=== PATIENT | female | born 1965 | race Caucasian/White ===

== ENCOUNTER → 2017-06-15 | Day surgery (SDC) | payer OTHER ==
[~2017-06-15] MED LIST: ACETAMINOPHEN/HYDROcodone 325 MG/5 MG TAB ONE; LACTATED RINGER'S 1000 ML INJ 1,000 ML ONE; MIDAZOLAM HCL 2 MG/2 ML VIAL ONE; ONDANSETRON HCL 4 MG/2 ML VIAL IV PUSH ONE; PROPOFOL 200 MG/20 ML AMP IV ONE; TRIAMCINOLONE ACETONIDE 40 MG/ML VIAL ONE; ceFAZolin INJ 1,000 MG VIAL ONE
--- NOTE | 2017-06-15 16:29 | TN ---
cc: Leander Navas MD DATE OF SURGERY: 06/15/2017 DATE OF OPERATION: 06/15/2017 PREOPERATIVE DIAGNOSIS: Left knee internal derangement. 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 PROCEDURE: Left knee arthroscopic surgery - subtotal lateral meniscectomy, chondroplasty, shaving articular surface of lateral compartment. SURGEON: Leander Navas MD SLOTTER OPERATOR: Evelyn Parra PA-C ANESTHESIA: General. COMPLICATIONS: None. CONDITION: Stable. PLAN OF ACTIVITY: Per orders. PROCEDURE: The patient was brought into the operating room and had satisfactory anesthesia by Dr. Cisse, Department of Anesthesia. Left lower extremity was prepped and draped in the usual sterile manner. The extremity was exsanguinated using Glenn wrap and the tourniquet was inflated to 225 mmHg. Routine anterolateral and anteromedial portals were made. Introduction of the arthroscopic instruments were performed. The knee was inflated with sterile Ringer's lactated solution. The inspection of the patellofemoral compartment revealed the patient to have mild to moderate chondromalacia involving the undersurface of the patella, femoral trochlear groove was found to be in normal limits. No loose bodies, mild degree of synovitis. The medial compartment showed normal medial meniscus, mild amount of chondromalacia of the medial femoral condyle. Anterior cruciate ligament was found to be intact with no evidence of any recent or remote injury. Inspection of the lateral compartment revealed the patient to have a complex tear involving the anterolateral meniscus. 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 Subtotal lateral meniscectomy was performed using meniscal Rongeurs and eun. Chondroplasty with shaving the articular surface was also made over the lateral compartment. The knee was irrigated with copious amounts of Ringer's lactated solution. The wound itself was dry. Arthroscopic instruments were removed. The knee was injected with 1 mL of Kenalog 40. The tourniquet was deflated and the incision was closed with 2-0 nylon. Sterile dressings were applied. The patient tolerated the procedure well and arrived in the recovery room in stable and satisfactory condition. Leander Navas MD AWG/TL/rh , 03:49 PM , 04:14 PM
== END | disposition home or self-care (01) ==
LOC: ESDC 09:56
PROVIDERS: ATTEND Orthopaedic Surgery Orthopaedic Surgery of the Spine
DX: S83.272A Complex tear of lateral meniscus, current injury, left knee, initial encounter (principal); M94.262 Chondromalacia, left knee
CPT/HCPCS: 01400; 29881; J0690; J2250; J2405; J3010; J3301; J7120